=== PATIENT | female | born 1945 | race Caucasian/White ===

== ENCOUNTER → 2023-07-13 13:35 | Outpatient (REF) | payer MEDICARE, OTHER, SELFPAY | LOC: WDC 13:35 | PROVIDERS: ATTENDING PHYSICIAN Obstetrics & Gynecology Gynecology; FAMILY PHYSICIAN Family Medicine | DX: Z12.31 Encounter for screening mammogram for malignant neoplasm of breast (principal); M81.8 Other osteoporosis without current pathological fracture | CPT/HCPCS: 77063; 77067; 77080 ==

== ENCOUNTER → 2024-05-24 14:27 | Outpatient (REF) | payer MEDICARE, OTHER, SELFPAY | LOC: RCS 14:27 | PROVIDERS: ATTENDING PHYSICIAN Nurse Practitioner | DX: R01.1 Cardiac murmur, unspecified (principal) | CPT/HCPCS: 93306 ==

== ENCOUNTER 2024-07-20 14:02 | Emergency (ER) | payer MEDICARE, OTHER, SELFPAY ==
[2024-07-20 14:06] VITALS: BMI 41.4
[2024-07-20 14:10] VITALS: BP 155/73
--- NOTE | 2024-07-20 14:12 | ED.GENMED ---
History of Present Illness
General
Chief Complaint: Abdominal Pain
Source: patient and records
Exam Limitations: none
Time Seen by Provider: 07/20/24 14:03
Nursing documentation reviewed up to this point in time: agreed with
History of Present Illness
History of Present Illness:
79-year-old female lives alone left lower abdominal pain for few hours came by ambulance no fever no nausea vomiting does have dysuria pain in her flank states is different than her kidney stone similar to her diverticulitis
Past History
Past History
ED Past Medical History: GERD, Psychiatric and Other (Diverticulitis, benign Positional vertigo)
ED Past Surgical History: Appendectomy, Cholecystectomy, Gynecological, Orthopedic, Tonsilectomy and Other
Social History
Tobacco: Former smoker
Alcohol: None
Drug: None
Personal:
Living: alone
Employment: Retired
Family History
Family History: Early CAD and CAD
Review of Systems
Review of Systems
Other source history: other
Constitutional: Denies fever or fatigue
EENT: Reports no symptoms
Respiratory: Reports no symptoms
Cardiac: Reports no symptoms
ABD/GI: Reports abdominal pain; Denies nausea, diarrhea or black stools
: Reports dysuria
Musculoskeletal: Reports back pain
Skin: Reports no symptoms
Neurological: Reports no symptoms
Phy Exam
Physical Exam
Physical Exam:
Physical Exam
General: no apparent distress, not acutely ill
Neck: No jaundice
Heart: s1/s2 regular rate and rhythm, no murmur. equal radial pulses.
Lungs: no acute respiratory distress. clear bilaterally
Abdomen: Mildly tender in the left lower abdomen
Neuro: alert and oriented. no focal neurological deficits
Skin: no rash
Psychiatric: well kept. interactive and cooperative
Extremities: no edema
Course
Orders/Labs/Results
Orders:
Orders
07/20/24 14:10
Electrocardiogram (*1) Stat
Reason for Study: Abdominal Pain
EKG- Treatment ONCE
07/20/24 14:24
CT Abd/Pel (IV only)-DH only Urgent
Comment:
Reason For Exam: llq pain
Morphine Sulfate 2 mg IV NOW STA
Ondansetron Injectable [Zofran] 4 mg IV NOW STA
07/20/24 14:25
0.9% Sodium Chloride 500 ml [Nss] 500 ml IV BOLUS
07/20/24 14:40
Complete Blood Count/With Diff Urgent
Comprehensive Metabolic Panel Urgent
Urinalysis Reflex To Culture Urgent
Date Specimen was Collected: 07/20/24
Time Specimen was Collected: 14:40
Urine Microscopic Reflex Cult Urgent
07/20/24 15:40
Acetaminophen 1000MG/100Ml [Ofirmev] 1,000 mg in 100 ml .ROUTE .STK-MED
Acetaminophen 1000MG/100Ml [Ofirmev] 1,000 mg in 100 ml IV ONCE
Acetaminophen IV Indication:: ED Narcotic Naive Pt-ONCE
Abnormal Lab Results
07/20/24
14:40
Monocytes % 9.8 H %
(1.7-9.3)
BUN 29 H mg/dl
(7-17)
Creatinine 1.2 H mg/dL
(0.6-1.0)
Glucose 107 H mg/dl
(70-99)
Ur Occult Blood Reflex 4+ A
(Negative)
Urine Bacteria (Reflex) Few A
(Negative)
07/20/24 14:40
07/20/24 14:40
Vital Signs
Initial and Last Documented VS:
Initial Vital Signs
Temp
98.1 F
07/20/24 14:06
Last Documented Vital Signs
Temp Resp BP Pulse Ox
98.1 F 16 134/51 97
02/08/25 14:06 07/20/24 16:02 07/20/24 15:00 07/20/24 15:15
MDM/Problems Addressed
Differential Diagnosis Includes:
Diverticulitis UTI kidney stone nonspecific abdominal pain doubt ovarian pathology
MDM/Problems Addressed:
Abdominal pain
Chronic conditions affecting care: Previous abdomnial surgery
Acute Exacerbation and/or Progression of Chronic Illness: Previous abdomnial surgery
*Critical Care Note
Total Time (30-74mins, 75-104mins- exclusive of procedures): Not Applicable
Update Note
Update Note:
Update labs noted CT report noted urine noted
Update patient comfortable with just Tylenol did not narcotics she appears stable for trial of passage at home
ED Attending Note
-
Portions of this chart may have been created with voice recognition software.� Occasional wrong word or��sound alike� substitutions may have occurred due to the inherent limitations of voice recognition software.
Discharge Plan
Departure
Patient Disposition: Home (Routine Discharge)
Date of Disposition: 07/20/24
Time of Disposition: 17:13
Patient with high blood pressure during this ER visit?: No
Discharge Problem:
Kidney calculi
Instructions: Kidney Stones (DC), Renal Colic (DC)
Prescriptions:
No Action
lamotrigine [Lamictal] 200 MG tablet
200 mg PO BID
bupropion HCl [Wellbutrin SR] 150 MG tablet sustained-release 12 hr
150 mg PO TID
atorvastatin 40 MG tablet
40 mg PO QPM
famotidine 40 MG tablet
40 mg PO HS
losartan [Cozaar] 100 MG tablet
100 mg PO DAILY
biotin 10 mg Tablet
10 mg PO DAILY
aspirin 81 mg Tablet,Chewable
81 mg PO DAILY
cholecalciferol (vitamin D3) [Vitamin D3] 50 mcg (2,000 unit) Capsule
50 mcg PO DAILY
Megared Advanced Total Body [id number] mg Capsule
500 cap PO DAILY
alprazolam [Xanax] 0.25 mg Tablet
0.25 mg PO BID PRN (Reason: anxiety) Qty: 6 0RF
dextroamphetamine-amphetamine [Adderall] 5 mg Tablet
5 mg PO DAILY Qty: 3 0RF
omeprazole 40 mg Capsule,Delayed Release(Dr/Ec)
40 mg PO DAILY
alprazolam [Xanax] 0.25 mg Tablet
0.25 mg PO DAILY
levothyroxine 50 mcg Tablet
50 mcg PO DAILY
magnesium oxide 500 mg Tablet
500 mg PO DAILY
coQ10 (ubiquinol) 200 mg Capsule
200 mg PO DAILY
diclofenac sodium 75 mg tablet,delayed release (DR/EC)
75 mg PO BID Qty: 10 0RF
cyclobenzaprine 10 mg tablet
10 mg PO TID PRN (Reason: muscle spasm) Qty: 15 0RF
cyclobenzaprine 10 mg tablet
10 mg PO TID PRN (Reason: muscle spasm) Qty: 15 0RF
Referrals:
Lora Moseley CRNP [Family Provider] -
Win Watts MD [Active] - Next open appointment
Activity Restrictions/Additional Instructions:
Return to the ER for worsening symptoms--- intractable pain, uncontrollable vomiting, or fever/chills or any other concerns
Interventions
Interventions:
*Risk Screen - Suicide Last Done: 07/20/24 14:06
*General Assessment Last Done: 07/20/24 14:06
*Neglect/Abuse Screening Last Done: 07/20/24 14:06
ED- Fall Risk Assessment Last Done: 07/20/24 14:06
*ED COVID-19 Vaccine History Last Done: 07/20/24 14:06
KM-Zalxfh-Dmxettzzsw Assessment Last Done: 07/20/24 14:06
Discharge Date and Time
Print Language: SYRIAN
[2024-07-20 14:38] VITALS: BP 148/64
[2024-07-20] MEDS: NSS 500 IV (14:44)
[2024-07-20 14:48] LABS: Urine Albumin Negative (Neg - Trace); Urine Bilirubin Negative (Negative); Urine Character Clear (Clear); Urine Color Straw; Urine Glucose Negative (Negative); Urine Ketone Negative (Negative); Urine Leukocyte Negative (Negative); Urine Nitrite Negative (Negative); Urine Occult Blood 4+ (Negative); Urine Urobilinogen Negative (Neg - 1+)
[2024-07-20 14:50] LABS: % Basophils 0.6 % (0-2); % Eosinophils 1.4 % (0-6); % Immature Granulocytes 0.5 % (0-0.5); % Lymphocytes 32.2 % (20.5-51.1); % Monocytes 9.8 % (1.7-9.3); % Neutrophils 55.5 % (42.2-75.2); Absolute Eosinophils 0.1 10^3/uL (0-0.7); Absolute Lymphocytes 2.1 10^3/uL (1.2-3.4); Absolute Monocytes 0.6 10^3/uL (0.1-0.6); Absolute Neutrophils 3.6 10^3/uL (1.4-6.5); Hematocrit 39.3 % (37.0-47.0); Hemoglobin 13.1 g/dL (12.0-16.0); Mean Corp Hgb Conc. 33.3 g/dL (33.0-37.0); Mean Corpuscular Hgb 30.4 pg (27.0-31.0); Mean Corpuscular Volume 91.2 fL (81.0-99.0); Mean Platelet Volume 10.1 fL (7.4-10.4); Nucleated Red Blood Cells % 0 %; Platelet Count 228 10^3/uL (130-400); Red Blood Cell Count 4.31 10^6/uL (4.20-5.40); Red Cell Dist. Width 13.9 % (11.5-14.5); Urine Bacteria Few (Negative); Urine Red Blood Cell 0-2 /HPF (0-2); Urine Squamous Cell 0-2 /LPF (Few); Urine White Cell 0-2 /HPF (0-5); White Blood Cell Count 6.5 10^3/uL (4.8-10.8)
[2024-07-20 15:00] VITALS: BP 134/51
[2024-07-20 15:01] LABS: ALT (SGPT) 23 U/L (0-35); AST (SGOT) 31 U/L (14-36); Albumin 3.9 g/dl (3.5-5.0); Alkaline Phosphatase 111 U/L (38-126); Blood Urea Nitrogen 29 mg/dl (7-17); Calcium 9.9 mg/dl (8.4-10.2); Carbon Dioxide 27 mmol/L (22-30); Chloride 107 mmol/L (98-107); Estimated Creatinine Clearance 44 ml/min; Glucose 107 mg/dl (70-99); Potassium 4.3 mmol/L (3.5-5.1); Sodium 141 mmol/L (135-145); Total Bilirubin 0.7 mg/dl (0.2-1.3); Total Protein 6.6 g/dl (6.3-8.2); eGFR 46.62
[2024-07-20] MEDS: OFIRMEV 100 IV (15:44)
[2024-07-20 16:00] VITALS: BP 124/43
[2024-07-20 17:23] VITALS: BP 146/62
== END 2024-07-20 18:15 | disposition home or self-care (01) ==
LOC: EMR 14:02
PROVIDERS: EMERGENCY PHYSICIAN Emergency Medicine; FAMILY PHYSICIAN Nurse Practitioner
DX: N20.0 Calculus of kidney (principal); R30.0 Dysuria; K57.92 Diverticulitis of intestine, part unspecified, without perforation or abscess without bleeding; I10 Essential (primary) hypertension; G47.30 Sleep apnea, unspecified; E78.5 Hyperlipidemia, unspecified; K21.9 Gastro-esophageal reflux disease without esophagitis; M19.90 Unspecified osteoarthritis, unspecified site; E03.9 Hypothyroidism, unspecified; F32.A Depression, unspecified; F31.9 Bipolar disorder, unspecified; Z85.42 Personal history of malignant neoplasm of other parts of uterus; Z87.891 Personal history of nicotine dependence; Z90.49 Acquired absence of other specified parts of digestive tract; Z91.040 Latex allergy status; Z88.5 Allergy status to narcotic agent; Z88.2 Allergy status to sulfonamides; Z88.8 Allergy status to other drugs, medicaments and biological substances; Z91.048 Other nonmedicinal substance allergy status
CPT/HCPCS: 99284; 96361; 96374; 74177; 80053; 81003; 81015; 85025; 93005; Q9967

== ENCOUNTER → 2024-08-14 12:08 | Outpatient (REF) | payer MEDICARE, OTHER, SELFPAY | LOC: RAD 12:08 | PROVIDERS: ATTENDING PHYSICIAN Surgery; FAMILY PHYSICIAN Nurse Practitioner | DX: N13.2 Hydronephrosis with renal and ureteral calculous obstruction (principal) | CPT/HCPCS: 74176 ==

== ENCOUNTER → 2024-12-03 10:14 | Outpatient (REF) | payer MEDICARE, OTHER, SELFPAY | LOC: HWCARD 10:14 | PROVIDERS: ATTENDING PHYSICIAN Student in an Organized Health Care Education/Training Program; FAMILY PHYSICIAN Nurse Practitioner | DX: M15.9 Polyosteoarthritis, unspecified (principal); M35.00 Sjogren syndrome, unspecified; M79.10 Myalgia, unspecified site; M85.80 Other specified disorders of bone density and structure, unspecified site; R31.29 Other microscopic hematuria; R76.8 Other specified abnormal immunological findings in serum; R79.82 Elevated C-reactive protein (CRP) | CPT/HCPCS: 93005 ==

== ENCOUNTER 2025-01-10 06:30 | Day surgery (SDC) | payer MEDICARE, OTHER, SELFPAY | END 2025-01-10 09:53 | disposition home or self-care (01) | LOC: GI 06:30 | PROVIDERS: ATTENDING PHYSICIAN Specialist | DX: R13.10 Dysphagia, unspecified (principal) | CPT/HCPCS: 43239; 88305 ==